=== PATIENT | female | born 1980 | race American Indian/Alaskan Native ===

== ENCOUNTER 2017-07-26 10:56 | Emergency (ER) | payer OTHER ==
--- NOTE | 2017-07-26 13:21 | Emergency Department Report ---
ED Rash HPI - HPI Chief Complaint: Skin Rash Stated Complaint: BILAT LEG PAIN Time Seen by Provider: 07/26/17 12:54 Duration: 4 Days Location: Lower Extremities (BLE from knees to ankle) Suspected Cause: Unknown Rash Symptoms: Yes Itching, No Facial Swelling, No Tongue/Oral Swelling, No Breathing Difficulties, No Choking Sensation, No Wheezing/Dyspnea, No Peeling, No Blistering, No Fever, No Lightheaded, No Malaise, No Myalgias Severity: mild Other History: This is a 36 y.o. female that presents with a rash to both legs from the knees to ankles for 4 days. Reports having throbbing pain that is worse at rest and improves with movement or walking. States pain increased on Saturday when she woke up. Pain is intermittent and 6/10 on scale. She is currently not taking anything for symptoms. She has not changed soaps or detergent. Admits to nephew having strep throat 3 weeks ago but she never had symptoms of sore throat. She and sister live in the same house with children who have all had something in the past 3 weeks. Denies recent travel, fever, insect bites, redness, swelling, congestion, night sweats, SOB, and chest pain. ED Review of Systems ROS: Stated complaint: BILAT LEG PAIN Other details as noted in HPI Constitutional: denies: chills, fever Respiratory: denies: cough, shortness of breath, wheezing Cardiovascular: denies: chest pain, palpitations, edema, syncope Gastrointestinal: denies: abdominal pain, nausea, vomiting, diarrhea Musculoskeletal: arthralgia (BLE pain from knees to ankles). denies: back pain , joint swelling Skin: rash (BLE shines). denies: lesions Neurological: denies: headache, weakness, paresthesias Psychiatric: denies: anxiety, depression ED Past Medical Hx - Past Medical History Previous Medical History?: No - Surgical History Past Surgical History?: No - Social History Smoking Status: Never Smoker Substance Use Type: None - Medications Home Medications: Home Medications Medication Instructions Recorded Confirmed Last Taken Type Ibuprofen 800 mg PO Q6H PRN #20 tablet 07/26/17 Unknown Rx predniSONE [Deltasone] 20 mg PO QDAY 10 Days #10 tab 07/26/17 Unknown Rx Rash Exam - Exam General: Vital signs noted. No distress. Alert and acting appropriately. HEENT: No Periorbital Edema, No Conjuctival Injection, No Chemosis, No Perioral Edema, No Tongue Edema, No Uvular Edema, No Compromised Airway, No Drooling Lungs: Yes Good Air Exchange (Normal Breath Sounds), No Wheezes, No Ronchi, No Stridor, No Cough, No Labored Respirations, No Retractions, No Use of Accessory Muscles, No Other Abnormal Lung Sounds Heart: Yes Regular, No Murmur Skin: Yes Maculopapular Rash, Yes Tenderness, Yes Erythema (BLE shins, 2-3 cm erythematous nodules, warm, tender to touch ), No Urticarial Rash, No Morbilliform rash, No Bulla(e), No Excoriations, No Weeping, No Edema, No Encrustations, No Other ED Course Vital Signs 07/26/17 11:02 Temperature 98.6 F Pulse Rate 67 Respiratory 18 Rate Blood Pressure 124/83 O2 Sat by Pulse 97 Oximetry ED Medical Decision Making - Radiology Data Radiology results: report reviewed CXR: No acute cardiopulmonary findings. - Medical Decision Making This is a 36 y.o. female that presents with rash to bilateral shins. Patient examined by me and stable. No distress noted. Vitals stable. Obtained BMP, CBC, ESR, & CXR. CXR is normal. Pending labs. Physical findings susceptible of erythema nodosum. Start ibuprofen 800 mg po q6h prn and prednisone 20 mg po daily x 10 days. Follow up with PCP for confirmation testing. Discussed plan with patient and given patient education handout from [facility]. She does not have insurance. Referral to [facility]. She agrees with plan. Discharged home. Follow up with PCP in 24-72 hours. Chart signed and report given to Shahzad Gurrola Awaiting labs. Critical care attestation.: If time is entered above; I have spent that time in minutes in the direct care of this critically ill patient, excluding procedure time. ED Disposition Clinical Impression: Erythema nodosum Disposition: - TO HOME OR SELFCARE Is pt being admited?: No Does the pt Need Aspirin: No Condition: Stable Additional Instructions: Elevated your legs, rest, and use compression stockings. Take ibuprofen as needed every 8 hours for pain. Complete the full course of prednisone daily for 10 days. Follow up with [facility] in 2-3 days for full screening. Prescriptions: Ibuprofen 800 mg PO Q6H PRN #20 tablet PRN Reason: Pain predniSONE [Deltasone] 20 mg PO QDAY 10 Days #10 tab Referrals: [facility] [Outside] - 3-5 Days [facility] [Outside] - 3-5 Days [facility] [Outside] - 3-5 Days Time of Disposition: 14:07 Print Language: CONGOLESE
--- NOTE | 2017-07-26 14:35 | XRay Report ---
Chest 2 views: History: Rule out TB. Findings: Normal cardiomediastinal silhouette. Trachea is midline. No consolidation, pneumothorax or pleural effusion. Impression: No acute cardiopulmonary findings.
[2017-07-26 14:56] LABS: Hematocrit 37.9 % (30.3-42.9); Hemoglobin 13.1 gm/dl (10.1-14.3); Mean Corpuscular HGB Conc 35 % (30-34); Mean Corpuscular Hemoglobin 33 pg (28-32); Mean Corpuscular Volume 95 fl (79-97); Platelet Count 192 K/mm3 (140-440); Red Blood Count 3.99 M/mm3 (3.65-5.03); Red Cell Distribution Width 12.3 % (13.2-15.2)
[2017-07-26 15:06] LABS: BUN/Creatinine Ratio 10; Blood Urea Nitrogen 6 mg/dL (7-17); Calcium 9.5 mg/dL (8.4-10.2); Hemolysis Index 72
[2017-07-26 15:16] LABS: Erythrocyte Sedimentation Rate 42 mm/Hr (0-20)
[2017-07-26 15:34] VITALS: BP 128/71
== END 2017-07-26 15:35 | disposition home or self-care (01) ==
LOC: ED 10:56
DX: L53.8 Other specified erythematous conditions (principal)
CPT/HCPCS: 36415; 71046; 80048; 85027; 85652; 99283